=== PATIENT | female | born 1970 | race Caucasian/White ===

== ENCOUNTER 2018-01-26 18:15 | Emergency (ER) | payer MEDICAID ==
[2018-01-26 18:37] VITALS: BMI 29.2
--- NOTE | 2018-01-26 20:04 | C.PDOC ---
History Of Present Illness 47 year old female presents to the ED for evaluation of persistent generalized abdominal pain associated with nausea and vomiting. Patient recently returned from [place]. Patient reports that while in [place] 2 days ago she developed diffuse abdominal burning pain and bloating associated with nausea and vomiting. Patient reports that on the first day she had diarrhea, watery non bloody but had not returned since. Patient states she was seen by a Doctor in [place] who gave her multiple GI medications that have not helped with the symptoms. Patient returned to the [facility] and came to the ED because her abdominal pain still pres ent. Patient states she still has generalized abdominal pain associated with nausea, vomit this morning but is tolerating po this afternooon. Patient denies fever, chills, dysuria, hematuria. Time Seen by Provider: 01/26/18 19:45 Chief Complaint (Nursing): Abdominal Pain History Per: Patient History/Exam Limitations: no limitations Onset/Duration Of Symptoms: Days Current Symptoms Are (Timing): Still Present Location Of Pain/Discomfort: Diffuse Radiation Of Pain To:: None Quality Of Discomfort: "Pain" Associated Symptoms: Nausea, Vomiting, Loss Of Appetite Alleviating Factors: None Recent travel outside of the [place]: Yes ([place]) Additional History Per: Patient Abnormal Vaginal Bleeding: No Past Medical History Reviewed: Historical Data, Nursing Documentation, Vital Signs Vital Signs: Last Vital Signs Temp 98.8 F 01/26/18 18:37 Pulse 102 H 01/26/18 18:37 Resp 20 01/26/18 18:37 BP 125/84 01/26/18 18:37 Pulse Ox 98 01/26/18 18:37 - Medical History PMH: No Chronic Diseases Surgical History: No Surg Hx Family History: States: Unknown Family Hx - Social History Hx Tobacco Use: No Hx Alcohol Use: No Hx Substance Use: No - Immunization History Hx Tetanus Toxoid Vaccination: No Hx Influenza Vaccination: No Hx Pneumococcal Vaccination: No Review Of Systems Constitutional: Negative for: Fever, Chills Cardiovascular: Negative for: Chest Pain Respiratory: Negative for: Shortness of Breath Gastrointestinal: Positive for: Nausea, Vomiting, Abdominal Pain Genitourinary: Negative for: Dysuria, Hematuria Skin: Negative for: Rash Neurological: Negative for: Weakness, Numbness Physical Exam - Physical Exam Appears: Non-toxic, No Acute Distress Skin: Normal Color, Warm, Dry Head: Atraumatic, Normacephalic Eye(s): bilateral: Normal Inspection Oral Mucosa: Moist Neck: Normal ROM, Supple Chest: Symmetrical Cardiovascular: Rhythm Regular Respiratory: Normal Breath Sounds, No Rales, No Rhonchi, No Wheezing Gastrointestinal/Abdominal: Soft, No Tenderness, No Guarding, No Rebound Extremity: Normal ROM, No Tenderness, No Swelling Neurological/Psych: Oriented x3, Normal Speech, Normal Cognition Gait: Steady ED Course And Treatment - Laboratory Results Result Diagrams: 01/26/18 20:23 01/26/18 20:23 Lab Interpretation: Normal O2 Sat by Pulse Oximetry: 98 (ON RA) Pulse Ox Interpretation: Normal Reevaluation Time: 21:31 Reassessment Condition: Improved Medical Decision Making Medical Decision Making: Plan: * Labs * Protonix 40 mg IVP * IV fluids * Zofran 8 mg IVP * UA Disposition Counseled Patient/Family Regarding: Studies Performed, Diagnosis, Need For Followup - Disposition Referrals: Chiquis Castro MD [Staff Provider] - Disposition: HOME/ ROUTINE Disposition Time: 21:32 Condition: IMPROVED Instructions: Stomach Ache and Stomach Upset, Nausea and Vomiting, Adult Forms: [employer] ([place]) - Clinical Impression Clinical Impression: Abdominal pain, Vomiting - Scribe Statement The provider has reviewed the documentation as recorded by the Scribe Leobardo Wall All medical record entries made by the Scribe were at my direction and personally dictated by me. I have reviewed the chart and agree that the record accurately reflects my personal performance of the history, physical exam, medical decision making, and the department course for this patient. I have also personally directed, reviewed, and agree with the discharge instructions and disposition.
[2018-01-26] MEDS ORDERED: Sodium Chloride 0.9% 1,000 ML ONE (20:08)
[2018-01-26] MEDS: Sodium Chloride 0.9% 1,000 ML IV ONE (20:23)
[2018-01-26 20:30] LABS: BASO # 0.1 K/uL (0.0-0.2); BASO % 1.2 % (0.0-2.0); EOS # 0.2 K/uL (0.0-0.7); EOS % 1.7 % (0.0-4.0); HEMOGLOBIN 11.5 g/dL (11.0-16.0); LYMPH # 2.6 K/uL (1.0-4.3); LYMPH % 25.6 % (20.0-40.0); MEAN CORPUSCULAR HEMOGLOBIN 26.8 pg (27.0-31.0); MEAN CORPUSCULAR HGB CONC 32.7 g/dL (33.0-37.0); MEAN PLATELET VOLUME 10.7 fL (7.2-11.7); MONO # 0.6 K/uL (0.0-0.8); NEUT # 6.6 K/uL (1.8-7.0); NEUT % 65.5 % (50.0-75.0); NRBC % 0.1 % (0.0-2.0); RBC 4.29 Mil/uL (3.80-5.20); RED CELL DISTRIBUTION WIDTH 15.5 % (11.5-14.5); WHITE BLOOD COUNT 10.1 K/uL (4.8-10.8)
[2018-01-26 20:37] LABS: SQUAMOUS EPITHIAL 4 /hpf (0-5); URINE BACTERIA RARE (<OCC); URINE BILIRUBIN NEGATIVE (NEGATIVE); URINE BLOOD 1+ (NEGATIVE); URINE CLARITY Clear (Clear); URINE COLOR Yellow (YELLOW); URINE GLUCOSE (UA) NORMAL (Normal); URINE LEUKOCYTE ESTERASE NEG Leu/uL (Negative); URINE PROTEIN NEGATIVE (NEGATIVE); URINE UROBILINOGEN NORMAL mg/dL (0.2-1.0)
[2018-01-26 20:44] LABS: ALB/GLOB RATIO 1.3 (1.0-2.1); ALBUMIN 4.1 g/dL (3.5-5.0); ALT/SGPT 26 U/L (9-52); AST/SGOT 20 U/L (14-36); BLOOD UREA NITROGEN 15 mg/dL (7-17); CALCIUM 9.5 mg/dl (8.6-10.4); GFR NON-AFRICAN AMERICAN > 60; LIPASE 163 U/L (23-300)
[2018-01-26 22:56] VITALS: BP 116/82; PULSE 91; RESP 16; TEMP 98.3; O2SAT 100
== END 2018-01-26 22:55 | disposition home or self-care (01) ==
LOC: C.ER 18:15
DX: R10.84 Generalized abdominal pain (principal); R11.10 Vomiting, unspecified
CPT/HCPCS: 80053; 81001; 83690; 85025; 96361; 96374; 96375; 99284; C9113; J2405; J7030

== ENCOUNTER 2018-07-26 08:26 | Outpatient (CLI) | payer MEDICAID | END 2018-07-26 08:27 | disposition home or self-care (01) | LOC: C.USIC 08:27 ==

== ENCOUNTER 2018-08-25 16:25 | Emergency (ER) | payer MEDICAID | END 2018-08-25 19:56 | disposition home or self-care (01) | LOC: C.ER 16:25 | DX: R07.9 Chest pain, unspecified (principal) ==